=== PATIENT | male | born 1950 | race Caucasian/White ===

== ENCOUNTER 2017-02-20 17:01 | Emergency (ER) | payer MEDICARE, OTHER ==
[~2017-02-20 17:01] MED LIST: ASPIR 8181 MG PO; CIPRO500 MG PO; COLCRYS0.6 MG PO; CYCLOBENZAPRINE10 MG PO; HYDROXYUREA500 MG PO; MOBIC15 MG PO; NITROSTAT0.4 MG SL; PLAVIX75 MG PO; PREDNISONE20 MG PO; PRINIVIL10 MG PO; TENORMIN50 MG PO; VIBRAMYCIN100 MG PO; ZOCOR40 MG PO
== END 2017-02-20 18:50 | disposition home or self-care (01) ==
LOC: ER 17:01
DX: M79.89 Other specified soft tissue disorders (principal); M79.605 Pain in left leg; I10 Essential (primary) hypertension; D45 Polycythemia vera; M10.9 Gout, unspecified; Z87.891 Personal history of nicotine dependence; Z79.82 Long term (current) use of aspirin; Z79.899 Other long term (current) drug therapy; Z88.0 Allergy status to penicillin
CPT/HCPCS: 36415; 96374; 96375